=== PATIENT | male | born 1990 | race Caucasian/White ===

== ENCOUNTER 2020-01-01 13:17 | Emergency (ER) | payer OTHER ==
--- NOTE | 2020-01-01 14:02 | RAD ---
Radiograph left leg tibia-fibula 2 views: HISTORY: 29-year-old male status post laceration. FINDINGS: No fracture of tibia or fibula. No radiopaque foreign body. IMPRESSION: Negative.
[2020-01-01] MEDS ORDERED: Adacel (T-DAP) 0.5 ML SYRINGE ONE (14:03)
[2020-01-01] MEDS ORDERED: Lidocaine 1% w/Epinephrine 1:100K 30 ML VIAL ONE (14:24)
[2020-01-01] MEDS ORDERED: Bacitracin 1 PK ONE (15:00)
== END 2020-01-01 15:00 | disposition home or self-care (01) ==
LOC: NAV ERS 13:17
DX: S81.812A Laceration without foreign body, left lower leg, initial encounter (principal); I10 Essential (primary) hypertension; W26.8XXA Contact with other sharp object(s), not elsewhere classified, initial encounter
CPT/HCPCS: 12002; 90471; 90715; J2001

== ENCOUNTER 2023-10-17 08:01 | Emergency (ER) | payer OTHER ==
[2023-10-17] MEDS ORDERED: Ketorolac Tromethamine 60 MG/2 ML VIAL ONE (08:26)
== END 2023-10-17 08:29 | disposition home or self-care (01) ==
LOC: NAV ERS 08:01
DX: B34.9 Viral infection, unspecified (principal); I10 Essential (primary) hypertension
CPT/HCPCS: 96372; 99283; J1885

== ENCOUNTER 2023-11-07 08:32 | Emergency (ER) | payer OTHER ==
[2023-11-07] MEDS ORDERED: methylPREDNISolone Acetate 40 mg/ml Vial ONE (08:47)
[2023-11-07] MEDS ORDERED: Naproxen 500 MG TAB ONE (08:48)
== END 2023-11-07 09:00 | disposition home or self-care (01) ==
LOC: NAV ERS 08:32
DX: B34.9 Viral infection, unspecified (principal); I10 Essential (primary) hypertension
CPT/HCPCS: 96372; 99283; J1030

== ENCOUNTER 2025-08-16 20:05 | Emergency (ER) | payer OTHER ==
[2025-08-16 20:30] LABS: INR-International Normal Ratio 1.0; Prothrombin Time 13.1 sec (12.0-14.7)
[2025-08-16 20:31] LABS: PTT 31.7 sec (22.9-36.1)
[2025-08-16 20:35] LABS: #Basophils 0.1 thou/uL (0.0-0.2); #Eosinophils 0.1 thou/uL (0.0-0.7); #Lymphocytes 2.6 thou/uL (1.20-3.40); #Monocytes 0.5 thou/uL (0.11-0.59); #Neutrophils 4.7 thou/uL (1.40-6.50); %Basophils 1.8 % (0.0-1.0); %Eosinophils 1.3 % (0.0-10.0); %Lymphocytes 32.6 % (21.0-51.0); %Monocytes 6.5 % (0.0-10.0); %Neutrophils 57.9 % (42.0-75.0); Hematocrit 42.3 % (42.0-52.0); Hemoglobin 16.0 g/dL (14.0-18.0); Mean Corpuscular Hemoglobin 31.8 pg (27.0-31.0); Mean Corpuscular Volume 84.2 fl (78.0-98.0); Platelet Count 270 10x3/uL (130-400); Red Blood Cell (RBC) Count 5.02 mill/uL (4.70-6.10); White Blood Cell (WBC) Count 8.1 10x3/uL (4.8-10.8)
[2025-08-16 20:36] LABS: ALT (SGPT) 24 U/L (Less than 45); AST (SGOT) 37 U/L (11-34); Albumin 5.4 g/dL (3.1-4.5); Alkaline Phosphatase 68 U/L (40-110); Anion Gap 19 mmol/L (10-20); BUN (Urea Nitrogen) 17 mg/dL (8.9-20.6); Bilirubin, Total 0.3 mg/dL (0.3-1.2); Calc. Creatinine Clearance 0 mL/min (70-130); Calcium 9.8 mg/dL (7.8-10.44); Carbon Dioxide 22 mmol/L (22-29); Chloride 102 mmol/L (98-107); Globulin 3.2 g/dL (2.4-3.5); Glucose 88 mg/dL (70-105); Potassium 3.9 mmol/L (3.5-5.1); Sodium 139 mmol/L (136-145)
[2025-08-16] MEDS ORDERED: Boostrix 0.5 ML (Tdap) VIAL (>/=7 yrs of age) ONE (20:48)
[2025-08-16] MEDS ORDERED: ANTIVENIN,CROTALIDAE (ANAVIP) 1 EACH VIAL ONE (21:13)
[2025-08-16] MEDS ORDERED: Acetaminophen 500 MG TAB ONE (22:07)
[2025-08-16 22:42] LABS: Fibrinogen 265.0 mg/dL (253-463)
[2025-08-16] MEDS ORDERED: Ondansetron PF 4 MG/2 ML Vial ONE (22:54)
== END 2025-08-16 23:59 | disposition short-term general hospital (02) ==
LOC: NAV ERS 20:05
DX: T63.091A Toxic effect of venom of other snake, accidental (unintentional), initial encounter (principal); S61.252A Open bite of right middle finger without damage to nail, initial encounter; I10 Essential (primary) hypertension; Z23 Encounter for immunization
CPT/HCPCS: 80053; 85025; 85384; 85610; 85730; 90471; 90715; 96374; 96376; J0841; J2270; J2405